=== PATIENT | female | born 1990 | race American Indian/Alaskan Native ===

== ENCOUNTER 2017-01-13 14:11 | Emergency (ER) | payer OTHER ==
[2017-01-13 15:13] VITALS: BP 129/80
[2017-01-13 15:48] LABS: Basophils % (Auto) 0.5 % (0.0-1.8); Eosinophils % (Auto) 0.2 % (0.0-4.3); Hematocrit 38.3 % (30.3-42.9); Hemoglobin 12.1 gm/dl (10.1-14.3); Mean Corpuscular HGB Conc 32 % (30-34); Mean Corpuscular Volume 80 fl (79-97); Platelet Count 303 K/mm3 (140-440); Red Blood Count 4.79 M/mm3 (3.65-5.03); Red Cell Distribution Width 16.5 % (13.2-15.2); White Blood Count 8.2 K/mm3 (4.5-11.0)
[2017-01-13 15:56] LABS: Alanine Aminotransferase 23 units/L (7-56); Albumin 4.1 g/dL (3.9-5); Alkaline Phosphatase 73 units/L (35-129); Anion Gap 16 mmol/L; BUN/Creatinine Ratio 16; Bilirubin,Total < 0.20 mg/dL (0.1-1.2); Blood Urea Nitrogen 13 mg/dL (7-17); Calcium 9.3 mg/dL (8.4-10.2); Carbon Dioxide 25 mmol/L (22-30); Glucose 91 mg/dL (65-100); Lipase 38 units/L (13-60); Sodium 134 mmol/L (137-145); Total Protein 8.3 g/dL (6.3-8.2)
[2017-01-13 15:59] LABS: Mean Corpuscular Hemoglobin 25 pg (28-32)
[2017-01-13 16:27] LABS: Bilirubin,Urine NEG (Negative); Blood,Urine NEG (Negative); Ketones,Urine NEG (Negative); Leukocyte Esterase,Urine SM (Negative); Mucus,Urine FEW /HPF; Nitrite,Urine NEG (Negative); Protein,Urine <15 mg/dL mg/dL (Negative); Urobilinogen,Urine < 2.0 mg/dL (<2.0)
== END 2017-01-14 | disposition left against medical advice (07) ==
LOC: ED 14:11
DX: R10.9 Unspecified abdominal pain (principal); Z53.21 Procedure and treatment not carried out due to patient leaving prior to being seen by health care provider
CPT/HCPCS: 36415; 80053; 81001; 83690; 85025

== ENCOUNTER 2019-04-19 19:34 | Outpatient (CLI) | payer OTHER ==
--- NOTE | 2019-04-19 20:43 | Cat Scan Report ---
NONENHANCED CT SCAN OF THE HEAD: INDICATION / CLINICAL INFORMATION: 29 years Female; NUMBNESS OF RT LOWER LIP. TECHNIQUE: Routine CT head without contrast. All CT scans at this location are performed using CT dos e reduction for ALARA by means of automated exposure control. COMPARISON: None. FINDINGS: BRAIN / INTRACRANIAL CONTENTS: No acute hemorrhage, mass effect, midline shift, hydrocephalus, or ac [place], large territorial infarct. No chronic infarct or focal atrophy. Normal brain volume and ventricu lar/sulcal size for age. No significant white matter abnormality. No focal lesion in the periventricu lar white matter CRANIOCERVICAL JUNCTION: No significant abnormality. ORBITS: No significant abnormality of visualized orbits. SINUSES / MASTOIDS: No significant abnormality of the visualized paranasal sinuses or mastoid air khushboo ls. ADDITIONAL FINDINGS: None. IMPRESSION: No focal parenchymal lesion in the brain. Signer Name: eCcil Kerr MD Signed: 04/19/2019 8:38 PM Workstation Name: [id number]
== END 2019-04-19 19:35 | disposition home or self-care (01) ==
LOC: CT 19:34
DX: R20.2 Paresthesia of skin (principal)
CPT/HCPCS: 70450